=== PATIENT | male | born 1970 | race African-American/Black ===

== ENCOUNTER 2017-02-13 10:03 | Inpatient (IN) | payer SELFPAY ==
[~2017-02-13] VITALS: Ht 185.4 cm; Wt 100.0 kg
[2017-02-13 10:00] VITALS: O2SAT 96
[2017-02-13] MEDS ORDERED: IOHEXOL 350 MG/ML 10 ML VIAL (for RAD DIAG) IVCONTRAST ONE (10:04)
[2017-02-13] MEDS ORDERED: LORazepam 2 MG/ML VIAL ONE (10:11)
[2017-02-13 10:20] LABS: I-STAT POTASSIUM 3.4 MMOL/L (3.5-4.9)
[2017-02-13 10:23] LABS: BASOPHIL # 0.1 TH/MM3 (0-0.2); BASOPHIL % 1.1 % (0.0-2.0); EOSINOPHIL # 0.2 TH/MM3 (0-0.4); EOSINOPHIL % 3.8 % (0.0-4.0); HEMATOCRIT 45.4 % (39.0-51.0); HEMO FLAGS DIFF FINAL; LYMPH % 36.5 % (9.0-44.0); MEAN CELL VOLUME 89.2 FL (80.0-100.0); MEAN CORPUSCULAR HEMOGLOBIN 28.9 PG (27.0-34.0); MEAN CORPUSCULAR HGB CONC 32.4 % (32.0-36.0); MONO % 3.7 % (0.0-8.0); NEUT % 54.9 % (16.0-70.0); PLATELET COUNT 331 TH/MM3 (150-450); RED BLOOD COUNT 5.09 MIL/MM3 (4.50-5.90); RED CELL DISTRIBUTION WIDTH 14.1 % (11.6-17.2); WHITE BLOOD COUNT 5.5 TH/MM3 (4.0-11.0)
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
[2017-02-13 10:30] LABS: APTT (PATIENT) 29.6 SEC (24.3-30.1); INTERNATIONAL NORMALIZED RATIO 0.9 RATIO; PROTHROMBIN TIME - PATIENT 10.2 SEC (9.8-11.6)
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
[2017-02-13] MEDS ORDERED: ONDANSETRON HCL 4 MG/2 ML VIAL IV PUSH PRN (10:45)
[2017-02-13] MEDS ORDERED: CHLORHEXIDINE GLUCONATE 2 % 1 PACK (2 CLOTHS) TOP PRN (10:45)
[2017-02-13] MEDS ORDERED: MISCELLANEOUS NURSING INFORMATION XX SCH (10:45)
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
[2017-02-13 10:52] VITALS: BP 129/66; PULSE 100; RESP 18; TEMP 98.8; O2SAT 98
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
[2017-02-13 13:21] VITALS: BP 115/79; PULSE 81; RESP 18; O2SAT 98
[2017-02-13] MEDS: MULTIVITAMIN INJ 10 ML, THIAMINE INJ 100 MG, FOLIC ACID INJ 1 MG in SODIUM CHLORID 0.9%... IV SCH (13:21)
[2017-02-13] MEDS: HYDROmorphone HCL PF 1 MG/ML VIAL IVP PRN ×2 (13:31→17:35)
[2017-02-13] MEDS ORDERED: ACETAMINOPHEN 1000 MG/100 ML 100 ML IV PRN (18:45)
[2017-02-13] MEDS ORDERED: ACETAMINOPHEN 1000 MG/100 ML 100 ML IV ONE (19:00)
[2017-02-13] MEDS ORDERED: LORazepam 2 MG/ML VIAL IV PUSH ONE (19:15)
[2017-02-13 19:20] VITALS: O2SAT 99
[2017-02-13] MEDS ORDERED: LORazepam 2 MG/ML VIAL IV PUSH PRN (19:30)
[2017-02-13 20:00] VITALS: BP 137/81; PULSE 73; RESP 18; TEMP 98.8; O2SAT 97
[2017-02-13 20:06] VITALS: PULSE 82
[2017-02-13] MEDS ORDERED: DOCU1CAP39 PO (20:13)
--- NOTE | 2017-02-13 20:17 | PD ---
Data Data Last Documented VS Vital Signs Date Time Temp Pulse Resp B/P (MAP) Pulse Ox O2 Delivery O2 Flow Rate FiO2 02/13/17 10:52 98.8 100 18 129/66 (87) 98 Room Air 02/13/17 10:00 2.00 Orders Orders Ed Poc Ultrasound (02/13/17 ) Lorazepam Inj (Ativan Inj) (02/13/17 10:11) I-Stat Profile (02/13/17 10:12) I-Stat Creatinine (02/13/17 10:12) Complete Blood Count With Diff (02/13/17 10:12) Prothrombin Time / Inr (Pt) (02/13/17 10:12) Act Partial Throm Time (Ptt) (02/13/17 10:12) Type And Screen (02/13/17 10:12) Alcohol (Ethanol) (02/13/17 10:12) Urinalysis - C+S If Indicated (02/13/17 10:12) Drug Screen, Random Urine (02/13/17 10:12) Chest, Single Ap (02/13/17 10:12) Pelvis, Ap Only (Routine) (02/13/17 10:12) Ct Brain W/O Iv Contrast(Rout) (02/13/17 10:12) Ct Cerv Spine W/O Contrast (02/13/17 10:12) Ct Abd/Pel W Iv Contrast(Rout) (02/13/17 10:12) Ct Thorax/ Chest W Iv Contrast (02/13/17 10:12) Iv Access Insert/Monitor (02/13/17 10:12) Ecg Monitoring (02/13/17 10:12) Oximetry (02/13/17 10:12) Oxygen Administration (02/13/17 10:12) Iohexol 350 Inj (Omnipaque 350 Inj) (02/13/17 10:04) Vital Signs (Adult) RUBA.QSHIFT (02/13/17 10:41) Intake + Output RUBA.Q8H (02/13/17 10:41) Diet Clear Liquid (02/13/17 Lunch) Scd / Edgar / Foot Pump RUBA.QSHIFT (02/13/17 10:41) Instruction (02/13/17 10:41) Complete Blood Count With Diff (02/14/17 06:00) Basic Metabolic Panel (Bmp) (02/14/17 06:00) Hydromorphone Pf Inj (Dilaudid Pf Inj) (02/13/17 10:45) Hydromorphone Pf Inj (Dilaudid Pf Inj) (02/13/17 10:45) Ondansetron Inj (Zofran Inj) (02/13/17 10:45) Multivitamin Inj (Mvi-12 Inj)... (02/13/17 13:00) Docusate Sodium (Colace) (02/13/17 21:00) ^ Initiate Protocol (02/13/17 10:41) Instruction (02/13/17 10:41) [facility] [place] [facility] [place]02/13/17 10:45) Chlorhexidine 2% Cloth (Chlorhexidine 2% (02/14/17 04:00) Chlorhexidine 2% Cloth (Chlorhexidine 2% (02/13/17 10:45) [facility]sa Pcr Surveillance (02/13/17 10:41) Inpatient Certification (02/13/17 ) Admit Order (Ed Use Only) (02/13/17 11:04) Labs Laboratory Tests Test 02/13/17 10:10 White Blood Count 5.5 TH/MM3 Red Blood Count 5.09 MIL/MM3 Hemoglobin 14.7 GM/DL Bedside Hemoglobin 15.3 G/DL Hematocrit 45.4 % Bedside Hematocrit 45.0 % Mean Corpuscular Volume 89.2 FL Mean Corpuscular Hemoglobin 28.9 PG Mean Corpuscular Hemoglobin Concent 32.4 % Red Cell Distribution Width 14.1 % Platelet Count 331 TH/MM3 Mean Platelet Volume 8.5 FL Neutrophils (%) (Auto) 54.9 % Lymphocytes (%) (Auto) 36.5 % Monocytes (%) (Auto) 3.7 % Eosinophils (%) (Auto) 3.8 % Basophils (%) (Auto) 1.1 % Neutrophils # (Auto) 3.0 TH/MM3 Lymphocytes # (Auto) 2.0 TH/MM3 Monocytes # (Auto) 0.2 TH/MM3 Eosinophils # (Auto) 0.2 TH/MM3 Basophils # (Auto) 0.1 TH/MM3 CBC Comment DIFF FINAL Differential Comment Prothrombin Time 10.2 SEC Prothromb Time International Ratio 0.9 RATIO Activated Partial Thromboplast Time 29.6 SEC Bedside Sodium 149 MMOL/L Bedside Potassium 3.4 MMOL/L Bedside Chloride 109 MMOL/L Bedside Blood Urea Nitrogen 6 MG/DL Bedside Creatinine 1.2 MG/DL Bedside Glucose 103 MG/DL Ethyl Alcohol Level 285 MG/DL MDM Supervised Visit with TAZ: No Narrative Course At just after 1900 i overheard maddi called to H pod in the ER. I responded and found a patient twitching in the abdomen. He was alert and awake. He would not follow commands in any extremity but was able to move his hands to wipe his face. He complained of headache. Nursing informing that patient admitted for altered mental status after a closed head injury. After review of records the patient arrived as trauma alert earlier today and had scan of head which was negative. Patient given Ativan 1mg IV for possible amphetamine and alcohol withdrawal versus focalized partial seizure (the later of which i think is less likely). Patient sleeping afterwards, arroused easily and states that he is feeling better and headache has gone away. He is neurologically intact at this time. I updated Dr. Lawson by phone at [phone] orders[address] Discussed possibility for repeat CT scan versus EEG, he will consider it and place orders. Patient stabilized was left in nursing care awaiting orders from Dr. Lawson the attending physician. Diagnosis Primary Impression: LEFT TEMPORAL LACERATION /P ADHESIVE REPAIR Additional Impressions: Nasal bone fracture Qualified Codes: S02.2XXA - Fracture of nasal bones, initial encounter for closed fracture INTOXICATION Ricardo Rivera MD Feb 13, 2017 20:17
[2017-02-13] MEDS: DOCUSATE SODIUM 100 MG CAP PO SCH (20:27)
[2017-02-13] MEDS: LACTATED RINGER'S 1000 ML INJ 1,000 ML IV SCH (21:07)
[2017-02-14] VITALS (7 sets, daily range): BP systolic 124–130; BP diastolic 66–81; PULSE 54–86; RESP 16–18; TEMP 98.1–98.4; O2SAT 96–97
[2017-02-14] MEDS: HYDROmorphone HCL PF 1 MG/ML VIAL IVP PRN ×2 (03:48→07:58)
[2017-02-14] MEDS ORDERED: CHLORHEXIDINE GLUCONATE 2 % 1 PACK (2 CLOTHS) TOP SCH (04:00)
[2017-02-14] MEDS: LACTATED RINGER'S 1000 ML INJ 1,000 ML IV SCH (06:06)
[2017-02-14] MEDS ORDERED: oxyCODONE/ACETAMINOPHEN 5 MG/325 MG TAB PO PRN ×2 (11:15)
[2017-02-14] MEDS: DOCUSATE SODIUM 100 MG CAP PO SCH (11:37)
[2017-02-14] MEDS: MULTIVITAMIN INJ 10 ML, THIAMINE INJ 100 MG, FOLIC ACID INJ 1 MG in SODIUM CHLORID 0.9%... IV SCH (13:00)
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
[2017-02-14] MEDS ORDERED: MAGNESIUM HYDROXIDE SUSP 30 ML CUP PO SCH (21:00)
== END 2017-02-14 14:51 | disposition home or self-care (01) | DRG 605 ==
LOC: NEPI 10:03 → INTOOBSV 11:07 → NEDA 11:07 → NEPHCDU 14:54 → EDBD 19:21 → OBSVTOIN 19:21
PROVIDERS: ADMIT Surgery Trauma Surgery; ATTEND Surgery Trauma Surgery
PROC: 0HQ1XZZ Repair Face Skin, External Approach (ICD-10-PCS; principal; 2017-02-13)
DX: S01.81XA Laceration without foreign body of other part of head, initial encounter (principal); S06.0X9A Concussion with loss of consciousness of unspecified duration, initial encounter; F10.129 Alcohol abuse with intoxication, unspecified; Y90.8 Blood alcohol level of 240 mg/100 ml or more; S02.2XXA Fracture of nasal bones, initial encounter for closed fracture; R40.2411 Glasgow coma scale score 13-15, in the field [EMT or ambulance]; X58.XXXA Exposure to other specified factors, initial encounter
CPT/HCPCS: 12013; 70450; 71010; 71260; 72125; 72170; 74177; 80307; 82435; 82565; 82947; 82948; 84132; 84295; 84520; 85025; 85610; 85730; 86850; 86900; 86901; 96374; 99291; G0390; G8987-GP; G8988-GP; J0131; J1170; J2060; J3411; J7040; J7120; Q9967